=== PATIENT | male | born 1975 | race Caucasian/White ===

== ENCOUNTER 2017-07-19 18:37 | Emergency (ER) | payer SELFPAY ==
[2017-07-19] MEDS ORDERED: AMOXicillin 250 MG CAP ONE (18:59)
== END 2017-07-19 19:04 | disposition home or self-care (01) ==
LOC: NAV ERS 18:37
DX: K02.9 Dental caries, unspecified (principal); Z87.891 Personal history of nicotine dependence
CPT/HCPCS: 99282

== ENCOUNTER 2018-04-02 20:57 | Emergency (ER) | payer SELFPAY ==
[2018-04-02] MEDS ORDERED: Ondansetron PF 4 MG/2 ML Vial ONE (21:18)
[2018-04-02] MEDS ORDERED: Morphine 4 MG/ML VIAL ONE (21:18)
[2018-04-02 21:39] LABS: ALT (SGPT) 29 U/L (8-55); AST (SGOT) 21 U/L (5-34); Albumin 4.7 g/dL (3.5-5.0); Alkaline Phosphatase 64 U/L (40-150); Anion Gap 15 mmol/L (10-20); BUN (Urea Nitrogen) 14 mg/dL (8.9-20.6); Bilirubin, Total 0.3 mg/dL (0.2-1.2); Calc. Creatinine Clearance 0 mL/min (70-130); Calcium 9.5 mg/dL (7.8-10.44); Carbon Dioxide 21 mmol/L (22-29); Chloride 104 mmol/L (98-107); Estimated GFR-MDRD 86; Globulin 3.6 g/dL (2.4-3.5); Glucose 107 mg/dL (70-105); Lipase 15 U/L (8-78); Magnesium 2.2 mg/dL (1.6-2.6); Potassium 3.8 mmol/L (3.5-5.1); Protein, Total 8.3 g/dL (6.0-8.3); Sodium 136 mmol/L (136-145)
[2018-04-02 21:43] LABS: Band 5 % (5-11); Eosinophils 4 % (0-10); Hemoglobin 13.6 g/dL (14.0-18.0); Lymphocytes 51 % (21-51); MDiff Complete? YES; Mean Corpuscular HGB CONC 31.9 g/dL (32.0-36.0); Mean Corpuscular Hemoglobin 27.7 pg (27.0-31.0); Mean Corpuscular Volume 87.1 fL (78.0-98.0); Mean Platelet Volume 7.7 fL (7.4-10.4); Monocytes 3 % (0-10); Neutrophil 37 % (42-75); PLT Morphology Comment Appears Adequate; Platelet Count 242 thou/uL (130-400); RBC Distribution Width 11.6 % (11.5-14.5); RBC Morphology Normal; Red Blood Cell (RBC) Count 4.91 mill/uL (4.70-6.10); White Blood Cell (WBC) Count 7.9 thou/uL (4.8-10.8)
--- NOTE | 2018-04-02 22:32 | RAD ---
CHEST TWO VIEW: 03/23/18 HISTORY: Pain. COMPARISON: None. FINDINGS: Normal cardiac silhouette. Pulmonary vessels and hilum are normal. Costophrenic angles are clear. No consolidation or mass. No pneumothorax or osseous abnormalities. IMPRESSION: No acute cardiopulmonary process. POS: [facility]
== END 2018-04-03 01:00 | disposition home or self-care (01) ==
LOC: NAV ERS 20:57
DX: R07.9 Chest pain, unspecified (principal); Z87.891 Personal history of nicotine dependence
CPT/HCPCS: 71046; 80053; 83690; 83735; 84484; 85025; 93005; 94760; 96374; 96375; J2270; J2405